=== PATIENT | female | born 1985 | race Caucasian/White ===

== ENCOUNTER 2017-07-31 11:43 | Emergency (ER) | payer SELFPAY ==
[~2017-07-31] VITALS: Ht 160 cm; Wt 86.4 kg
[2017-07-31] MEDS ORDERED: MORPHINE SULFATE 10 MG/ML SYRINGE IM ONE (12:45)
[2017-07-31] MEDS ORDERED: PROMETHAZINE HCL 25 MG TABLET PO ONE (12:45)
[2017-07-31] MEDS ORDERED: LIDOCAINE HCL 1%/EPI 1:200,000/PF 30 ML VIAL INJ ONE (12:45)
[2017-07-31] MEDS ORDERED: CefTRIAXone SODIUM 1 GM/VIAL IM ONE (13:45)
[2017-07-31] MEDS ORDERED: LIDOCAINE HCL/PF 1% 2 ML VIAL IM ONE (13:45)
[2017-07-31 14:03] VITALS: BP 138/79
[2017-08-01] MEDS ORDERED: ANTIBIOTIC PO (09:32)
== END 2017-07-31 14:25 | disposition home or self-care (01) ==
LOC: EMS 11:46
DX: L02.31 Cutaneous abscess of buttock (principal); L03.317 Cellulitis of buttock
CPT/HCPCS: 10060; 96372; 99284; J0696; J2270; J3490 ×2

== ENCOUNTER 2017-08-01 09:29 | Emergency (ER) | payer SELFPAY ==
[~2017-08-01] VITALS: Ht 160 cm; Wt 81.8 kg
[2017-08-01] MEDS ORDERED: ANTIBIOTIC PO (09:32)
[2017-08-01 12:42] VITALS: BP 127/74
== END 2017-08-01 12:43 | disposition home or self-care (01) ==
LOC: EMS 09:33
DX: Z48.00 Encounter for change or removal of nonsurgical wound dressing (principal)
CPT/HCPCS: 99283